=== PATIENT | male | born 1995 | race Caucasian/White ===

== ENCOUNTER 2016-10-10 08:42 | Emergency (ER) | payer OTHER ==
[~2016-10-10] VITALS: Ht 180.3 cm; Wt 70.2 kg
[~2016-10-10 08:42] MED LIST: POLY335019 PO
[2016-10-10 08:45] VITALS: TEMP 37; Ht 180.3 cm; Wt 70.2 kg
[2016-10-10 08:50] VITALS: O2SAT 99
--- NOTE | 2016-10-10 09:00 | EMERGENCY ROOM VISIT NOTE ---
History Report prepared by Trishibsruthi: Citlali Anderson Under the Supervision of: Dr. Alonzo Cabrera M.D. First contact with patient: 08:48 Chief Complaint: CARDIAC ASSESSMENT Stated Complaint: TIGHTNESS IN CHEST History of Present Illness The patient is a 21 year old male who presents to the Emergency Room with complaints of persistent chest pain for the past 2 days. He rates his discomfort as a 9/10 in severity. He reports 2 days ago, he suddenly experienced a feeling of "chest tightness" and "shooting pains" down his left arm. He also experienced shortness of breath on exertion. He has a history of GERD but reports he has never experienced anything similar to this pain before. He is a former smoker. He notes last year he was drinking alcohol regularly, and that seemed to prompt his GERD. He denies any history of other drug use and reports he has stopped drinking so heavily. 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 A total of 10 systems reviewed and were otherwise negative. Past Medical & Surgical Medical Problems: (1) GERD (gastroesophageal reflux disease) Family History Patient reports no known family medical history. Social History Smoking Status: Never Smoker Alcohol Use: occasionally Marital Status: single Housing Status: lives with roommate Occupation Status: [employer] Current/Historical Medications Scheduled Omeprazole (Prilosec), 20 MG PO QAM Scheduled PRN Lorazepam (Ativan), 0.5 MG PO Q6H PRN for Anxiety/Agitation Polyethylene Glycol 3350 (Miralax), 17 GM PO DAILY PRN for Constipation Allergies Coded Allergies: No Known Allergies (Unverified , 10/10/16) Physical Exam Vital Signs Date Time Temp Pulse Resp B/P Pulse Ox O2 Delivery O2 Flow Rate FiO2 10/10/16 10:55 88 18 128/63 98 10/10/16 10:32 88 18 128/63 98 Room Air 10/10/16 09:32 72 10/10/16 08:54 100 10/10/16 08:50 99 Room Air 10/10/16 08:50 99 Room Air 10/10/16 08:45 37.0 110 20 145/89 99 Room Air Physical Exam GENERAL: Patient is a healthy-appearing well-nourished HEAD: Normocephalic atraumatic EYES: Ocular movements intact pupils equal and react to light OROPHARYNX mucous membranes are moist no exudates present no erythema or edema present NECK: Supple no nuchal rigidity CHEST: Good equal expansion LUNGS: Clear and equal to auscultation CARDIAC: Normal S1 and S2 ABDOMEN: Soft nontender no guarding BACK: No CVA tenderness EXTREMITIES: No pain upon palpation normal muscle strength in all groups no clubbing cyanosis or edema NEURO: Patient is following commands is answering questions appropriately. Alert and oriented x3 Cranial Nerves 2-12 grossly intact Medical Decision & Procedures ER Provider Diagnostic Interpretation: This X-Ray was reviewed and interpreted by myself and the radiologist. SINGLE VIEW CHEST IMPRESSION: No active disease in the chest. Electronically signed by: Emersno Medina M.D. 10/10/2016 9:52 AM Laboratory Results 10/10/16 09:10 Red Blood Count 5.59, Mean Corpuscular Volume 81.6, Mean Corpuscular Hemoglobin 30.6, Mean Corpuscular Hemoglobin Concent 37.5, Mean Platelet Volume 11.3, Neutrophils (%) (Auto) 56.9, Lymphocytes (%) (Auto) 33.7, Monocytes (%) (Auto) 8.4, Eosinophils (%) (Auto) 0.6, Basophils (%) (Auto) 0.4, Neutrophils # (Auto) 2.70, Lymphocytes # (Auto) 1.60, Monocytes # (Auto) 0.40, Eosinophils # (Auto) 0.03, Basophils # (Auto) 0.02 10/10/16 09:10 Test 10/10/16 09:10 White Blood Count 4.75 K/uL (4.8-10.8) Red Blood Count 5.59 M/uL (4.7-6.1) Hemoglobin 17.1 g/dL (14.0-18.0) Hematocrit 45.6 % (42-52) Mean Corpuscular Volume 81.6 fL (80-100) Mean Corpuscular Hemoglobin 30.6 pg (25-34) Mean Corpuscular Hemoglobin Concent 37.5 g/dl (32-36) Platelet Count 158 K/uL (130-400) Mean Platelet Volume 11.3 fL (7.4-10.4) Neutrophils (%) (Auto) 56.9 % Lymphocytes (%) (Auto) 33.7 % Monocytes (%) (Auto) 8.4 % Eosinophils (%) (Auto) 0.6 % Basophils (%) (Auto) 0.4 % Neutrophils # (Auto) 2.70 K/uL (1.4-6.5) Lymphocytes # (Auto) 1.60 K/uL (1.2-3.4) Monocytes # (Auto) 0.40 K/uL (0.11-0.59) Eosinophils # (Auto) 0.03 K/uL (0-0.5) Basophils # (Auto) 0.02 K/uL (0-0.2) RDW Standard Deviation 36.3 fL (36.4-46.3) RDW Coefficient of Variation 12.2 % (11.5-14.5) Immature Granulocyte % (Auto) 0.0 % Immature Granulocyte # (Auto) 0.00 K/uL (0.00-0.02) Anion Gap 11.0 mmol/L (3-11) Est Creatinine Clear Calc Drug Dose 104.6 ml/min Estimated GFR () 109.9 Estimated GFR (Non- 94.8 BUN/Creatinine Ratio 11.1 (10-20) Calcium Level 9.5 mg/dl (8.5-10.1) Total Bilirubin 1.7 mg/dl (0.2-1) Direct Bilirubin 0.3 mg/dl (0-0.2) Aspartate Amino Transf (AST/SGOT) 35 U/L (15-37) Alanine Aminotransferase (ALT/SGPT) 44 U/L (12-78) Alkaline Phosphatase 76 U/L (45-117) Total Creatine Kinase 529 U/L (39-308) Creatine Kinase MB 1.2 ng/ml (0.5-3.6) Creatine Kinase MB Ratio 0.2 (0-3.0) Troponin I < 0.015 ng/ml (0-0.045) Total Protein 8.4 gm/dl (6.4-8.2) Albumin 4.7 gm/dl (3.4-5.0) Lipase 124 U/L (73-393) Labs reviewed by ED physician. Medications Administered Medications (Trade) Dose Ordered Sig/Ju Route Start Time Stop Time Status Last Admin Dose Admin Lorazepam (Ativan Tab) 1 mg NOW STAT SL 10/10/16 10:35 10/10/16 10:36 DC 10/10/16 10:46 1 MG ECG Indication: chest pain Rate (beats per minute): 80 Rhythm: sinus with SA Findings: no acute ischemic change ED Course 08: Past medical records reviewed. The patient was evaluated in room B11. A complete history and physical examination was performed. 1035: Lorazepam 1 mg SL. 1110: I reevaluated the patient. He is feeling better. I discussed his results and discharge instructions and he verbalized complete understanding and agreement. Medical Decision Prior records/ancillary studies reviewed. Triage Nursing notes reviewed. The patient's history was concerning for chest pain. Differential diagnosis: Etiologies such as cardiac ischemia, aortic dissection, pulmonary embolism, pneumonia, pneumothorax, musculoskeletal, infections, pericarditis, myocarditis , esophageal rupture, gastrointestinal, as well as others were entertained. This is a 21-year-old male who presents emergency department complaining of left -sided chest pain that radiates down his left arm that is been ongoing for the past 48 hours. As the patient's pain has been ongoing for the past 48 hours I would expect his troponin to be elevated if this were due to his heart. As such it is not. In addition the patient also has a normal EKG. He does have a slight elevation in his CK that. The patient appears highly anxious on examination and I do believe anxiety is playing into a lot of his symptoms. I did recommend that the patient receive an IV however he is adamantly refusing it. I also recommended that we trial him on several medications however he is also adamantly refusing these. At the end of the evaluation I gave my patient is standard chest pain protocol to follow-up with cardiology however he was not happy with this as he is still continue to have chest pain. I again recommended that we try medication to attempt to assuage the patient's chest pain. He was given Ativan in the emergency department with improvement patient' s symptoms. I also recommended that the patient seek case management as he does not have insurance which she at first refused Impression Primary Impression: Chest pain Scribe Attestation The scribe's documentation has been prepared under my direction and personally reviewed by me in its entirety. I confirm that the note above accurately reflects all work, treatment, procedures, and medical decision making performed by me. Departure Information Dispostion Home / Self-Care Prescriptions Lorazepam (ATIVAN) 1 Mg Tab 0.5 MG PO Q6H Y for Anxiety/Agitation, #6 TAB Prov: Alonzo Cabrera MD 10/10/16 Referrals No Doctor, Assigned (PCP) Patient Instructions Chest Pain - [facility], My [facility] Additional Instructions Follow up with DR May's office this week No strenuous activity until follow up You have been examined and treated today on an emergency basis only. This is not a substitute for, or an effort to provide, complete comprehensive medical care. It is impossible to recognize and treat all injuries or illnesses in a single emergency department visit. It is therefore important that you follow up closely with your PCP. Call as soon as possible for an appointment. Thank you for your time and consideration. I look forward to speaking with you again soon. Please don't hesitate to call us if you have any questions. Problem Qualifiers Primary Impression: Chest pain Chest pain type: unspecified Qualified Codes: R07.9 - Chest pain, unspecified
[2016-10-10] MEDS ORDERED: PRLSR20 PO (09:03)
[2016-10-10 09:27] LABS: BASO % 0.4 %; BASO ABS # 0.02 K/uL (0-0.2); COMPLETE YES; EOS % 0.6 %; HEMATOCRIT 45.6 % (42-52); LYMPH % 33.7 %; MEAN CELL VOLUME 81.6 fL (80-100); MEAN CORPUSCULAR HEMOGLOBIN 30.6 pg (25-34); MEAN CORPUSCULAR HGB CONC 37.5 g/dl (32-36); MEAN PLATELET VOLUME 11.3 fL (7.4-10.4); MONO % 8.4 %; NEUT % 56.9 %; PLATELET COUNT 158 K/uL (130-400); RED BLOOD COUNT 5.59 M/uL (4.7-6.1); WHITE BLOOD COUNT 4.75 K/uL (4.8-10.8)
[2016-10-10 09:43] LABS: ALT/SGPT 44 U/L (12-78); BLOOD UREA NITROGEN 12 mg/dl (7-18); BUN/CREATININE RATIO 11.1 (10-20); CALCIUM 9.5 mg/dl (8.5-10.1); CARBON DIOXIDE 25 mmol/L (21-32); CHLORIDE 99 mmol/L (98-107); GLUCOSE 93 mg/dl (70-99); POTASSIUM 3.7 mmol/L (3.5-5.1); SODIUM 135 mmol/L (136-145)
[2016-10-10 09:48] LABS: ALKALINE PHOSPHATASE 76 U/L (45-117); AST/SGOT 35 U/L (15-37); CKMB/CK RATIO 0.2 (0-3.0)
--- NOTE | 2016-10-10 09:53 | DIAGNOSTIC IMAGING REPORT ---
SINGLE VIEW CHEST CLINICAL HISTORY: Atypical chest pain. FINDINGS: An AP, portable, upright chest radiograph is compared to study dated 06/20/2016. The examination is degraded by portable technique and patient rotation. The cardiomediastinal silhouette is unremarkable. The lungs and pleural spaces are clear. No pneumothorax is seen. The bony thorax is grossly intact. Mild thoracic scoliosis is noted. IMPRESSION: No active disease in the chest. Electronically signed by: Emerson Medina M.D. 10/10/2016 9:52 AM Dictated Date/Time: 10/10/2016 9:52 AM
[2016-10-10] MEDS ORDERED: LORAZEPAM 1 MG TAB SL STA (10:35)
[2016-10-10 10:55] VITALS: BP 128/63; PULSE 88; O2SAT 98
[2016-10-10] MEDS ORDERED: ATV/1 PO (11:09)
--- NOTE | 2016-10-15 19:15 | EMERGENCY ROOM VISIT NOTE ---
ED Visit Note First contact with patient: 08:48 Telephone call from a patient who was called multiple times today to the emergency department nursing staff waiting for me to shop at work. He calls again and during a period of high volume high acuity. The patient is gas or because he is out of his Ativan prescription and is requesting a refill. I explained to the patient under [place] State law I cannot refill Ativan and that a paper prescription as needed. This cannot be used because the patient went home to [place] even though he was said he was staying in town. I then recommended to the patient Vistaril which I pointed out I recommended to him in the emergency department when he was here. This was called into his pharmacy. I stressed the need for follow-up.
== END 2016-10-10 10:55 | disposition home or self-care (01) ==
LOC: C.EDB 08:44
DX: R07.9 Chest pain, unspecified (principal); K21.9 Gastro-esophageal reflux disease without esophagitis